=== PATIENT | male | born 1940 | race Caucasian/White ===

== ENCOUNTER 2017-10-11 00:55 | Inpatient (IN) | payer MEDICARE ==
[2017-10-11] VITALS (34 sets, daily range): BP systolic 88–133; BP diastolic 51–85; PULSE 74–112; RESP 16–24; TEMP 96.8–98.4; O2SAT 93–100
[~2017-10-11] VITALS: Ht 177.8 cm; Wt 74.0 kg
[~2017-10-11 00:55] MED LIST: Z.0.NO CURRENT MEDS
--- NOTE | 2017-10-11 01:10 | PD ---
HPI Chief Complaint: General Weakness Time Seen by Provider: 01:04 Travel History International Travel<30 days: No Contact w/Intl Traveler<30days: No Traveled to known affect area: No History of Present Illness HPI The patient is a 77 year old male who presents to the [facility] emergency department with a history of generalized weakness that he reports is been progressively worsening over the last week. He reports that he feels like he may be getting dehydrated. He reports that he has been eating normally. 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 It was resected and in a skin graft was placed. The area of skin graft was taken from the left forearm. The patient has an open wound with tendon exposure to that site which she reports in the next few weeks will also have a skin graft placed. The patient denies having any known fevers. He denies having any significant cough or congestion. He denies having any nausea, vomiting, or diarrhea. He denies having any chest pain, chest pressure, or shortness of breath. His called ambulance services this evening when he was reportedly altered. Upon their arrival he was cool, pale, and diaphoretic. The patient's blood pressure was 80 systolic. The patient's O2 saturations on room air were in the mid 80s. The patient was tachycardic in the 1 teens. IV access was obtained and the patient was given 500 mL of normal saline prior to arrival. The patient's blood pressure improved to 90 systolic. On review of systems otherwise, the patient denies having any neck pain, abdominal pain, urinary symptoms, or other focal neurologic symptoms. FOR[facility]LY [facility] Past Medical History Narrative Medical The patient's past medical history is significant for skin cancer. Initially, the patient reported that he does not have a history of diabetes. On further questioning after IV fluid resuscitation, the patient was more awake and alert and his is also at the bedside. They report that he has been diagnosed by his primary care physician in the past as being prediabetic. He reports that he was managing this with diet and exercise, however over the last year as he has been dealing with a skin cancer he has been followed by the [facility]. He reports that due to less exercise, he has developed diabetes. He reports that he was on insulin in the hospital 2 months ago when he had his surgery, however he was not discharged home on any medication. His was trying to get him into an drop wire hanger, however she was not able to schedule an appointment. Cancer: Yes (SKIN) Diabetes: No Patient Takes Glucophage: No Hepatitis: No Hiatal Hernia: No Medical other: Yes (LEFT MACULAR HOLE) Respiratory: Yes (sleep apnea) Thyroid Disease: No Tetanus Vaccination: Unknown Past Surgical History Narrative Surgical The patient's past surgical history is significant for eye surgery, skin cancer resection with skin graft Eye Surgery: Yes (cataract removed left eye) Oral Surgery: Yes (T & A) Pacemaker: No Other Surgery: Yes (SKIN GRAFT) Social History Alcohol Use: No Tobacco Use: No Substance Use: No Allergies-Medications (Allergen,Severity, Reaction): Coded Allergies: No Known Allergies (Unverified Allergy, Unknown, 10/11/17) Reported Meds & Prescriptions Reported Meds & Active Scripts Active Reported No Current Meds (Miscellaneous Medication) Misc Review of Systems Except as stated in HPI: all other systems reviewed are Neg General / Constitutional: No: Fever Eyes: No: Visual changes HENT: No: Headaches Cardiovascular: No: Chest Pain or Discomfort Respiratory: No: Shortness of Breath Gastrointestinal: No: Abdominal Pain Genitourinary: No: Dysuria Musculoskeletal: No: Pain Skin: No Rash Neurologic: Positive: Weakness (generalized weakness), No: Focal Abnormalities , Change in Mentation, Slurred Speech, Sensory Disturbance Psychiatric: No: Depression Endocrine: No: Polydipsia Hematologic/Lymphatic: No: Easy Bruising Physical Exam Narrative General: The patient is a well-developed well-nourished male in no acute distress Head and Neck exam: Head is noted to have a skin graft in place along 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 This appears to be in good repair, pink in color, no drainage noted. Eyes: EOMI, left pupil is smaller than the right. The patient has a history of left eye surgery. Extraocular motion is intact. Nose: Midline septum with pink mucous membranes Mouth: Dentition unremarkable. Moist mucus membranes. Posterior oropharynx is not erythematous. No tonsillar hypertrophy. Uvula midline. Airway patent. Neck: No palpable lymphadenopathy. No nuchal rigidity. No thyromegaly. Cardiovascular: Sinus tachycardia in the 1 teens without murmurs, gallops, or rubs. No pulse deficit to the extremities. Lungs: The patient has scattered rhonchi, crackles audible in the left lung base. No wheezes audible. No accessory muscle use. Abdomen: Soft, without tenderness to palpation in all 4 quadrants of the abdomen. No guarding, rebound, or rigidity. Normal bowel sounds are audible. No tenderness on palpation of McBurney's point. Negative Moralez's sign. Extremities: No clubbing, cyanosis, or edema. 2+ pulses in all 4 extremities. No calf tenderness on palpation. Back: No spinous process tenderness to palpation. No costovertebral angle tenderness to palpation. Neurologic Exam: Grossly nonfocal. Skin Exam: The patient on examination of the left forearm is noted to have a bandage in place. This was removed. The patient is noted along the ventral aspect of the forearm to have a wound with exposed tendon. There is minimal erythema to the skin around this. There is no significant drainage. Patient denies any significant tenderness on palpation. Intact skin that is warm and diaphoretic. Data Data Last Documented VS Vital Signs Date Time Temp Pulse Resp B/P (MAP) Pulse Ox O2 Delivery O2 Flow Rate FiO2 10/11/17 02:45 97.0 95 20 102/56 (71) 97 Nasal Cannula 3.00 Orders Orders Electrocardiogram (10/11/17 01:05) Complete Blood Count With Diff (10/11/17 01:05) Comprehensive Metabolic Panel (10/11/17 01:05) Creatine Kinase (Cpk) (10/11/17 01:05) Ckmb (Isoenzyme) Profile (10/11/17 01:05) Troponin I (10/11/17 01:05) B-Type Natriuretic Peptide (10/11/17 01:05) Prothrombin Time / Inr (Pt) (10/11/17 01:05) Act Partial Throm Time (Ptt) (10/11/17 01:05) C-Reactive Protein (Crp) (10/11/17 01:05) Lipase (10/11/17 01:05) Urinalysis - C+S If Indicated (10/11/17 01:05) Magnesium (Mg) (10/11/17 01:05) Chest, Single Ap (10/11/17 01:05) Iv Access Insert/Monitor (10/11/17 01:05) Ecg Monitoring (10/11/17 01:05) Oximetry (10/11/17 01:05) Urinary Catheter Insert/Apply (10/11/17 01:05) Blood Culture (10/11/17 01:05) Lactic Acid Sepsis Protocol (10/11/17 01:05) Sodium Chlor 0.9% 1000 Ml Inj (Ns 1000 M (10/11/17 01:15) Piperacil-Tazo 3.375 Gm Premix (Zosyn 3. (10/11/17 01:15) Vancomycin Inj (Vancomycin Inj) (10/11/17 01:15) CKMB (10/11/17 01:00) CKMB% (10/11/17 01:00) Sodium Chlor 0.9% 1000 Ml Inj (Ns 1000 M (10/11/17 02:00) Admit Order (Ed Use Only) (10/11/17 02:46) Labs Laboratory Tests Test 10/11/17 01:00 10/11/17 01:15 White Blood Count 10.8 TH/MM3 Red Blood Count 4.09 MIL/MM3 Hemoglobin 13.9 GM/DL Hematocrit 40.9 % Mean Corpuscular Volume 100.0 FL Mean Corpuscular Hemoglobin 33.9 PG Mean Corpuscular Hemoglobin Concent 33.8 % Red Cell Distribution Width 13.7 % Platelet Count 165 TH/MM3 Mean Platelet Volume 7.9 FL Neutrophils (%) (Auto) 54.7 % Lymphocytes (%) (Auto) 36.1 % Monocytes (%) (Auto) 7.5 % Eosinophils (%) (Auto) 1.2 % Basophils (%) (Auto) 0.5 % Neutrophils # (Auto) 5.9 TH/MM3 Lymphocytes # (Auto) 3.9 TH/MM3 Monocytes # (Auto) 0.8 TH/MM3 Eosinophils # (Auto) 0.1 TH/MM3 Basophils # (Auto) 0.1 TH/MM3 CBC Comment DIFF FINAL Differential Comment Prothrombin Time 12.0 SEC Prothromb Time International Ratio 1.1 RATIO Activated Partial Thromboplast Time 22.3 SEC Blood Urea Nitrogen 22 MG/DL Creatinine 1.25 MG/DL Random Glucose 256 MG/DL Total Protein 6.6 GM/DL Albumin 2.6 GM/DL Calcium Level 8.2 MG/DL Magnesium Level 2.2 MG/DL Alkaline Phosphatase 114 U/L Aspartate Amino Transf (AST/SGOT) 105 U/L Alanine Aminotransferase (ALT/SGPT) 70 U/L Total Bilirubin 0.4 MG/DL Sodium Level 138 MEQ/L Potassium Level 3.6 MEQ/L Chloride Level 103 MEQ/L Carbon Dioxide Level 21.8 MEQ/L Anion Gap 13 MEQ/L Estimat Glomerular Filtration Rate 56 ML/MIN Lactic Acid Level 5.9 mmol/L Total Creatine Kinase 156 U/L Creatine Kinase MB 5.3 NG/ML Troponin I 0.04 NG/ML C-Reactive Protein 4.63 MG/DL B-Type Natriuretic Peptide 67 PG/ML Lipase 180 U/L Urine Color YELLOW Urine Turbidity CLEAR Urine pH 6.5 Urine Specific [place] 1.020 Urine Protein 100 mg/dL Urine Glucose (UA) 70 mg/dL Urine Ketones NEG mg/dL Urine Occult Blood NEG Urine Nitrite NEG Urine Bilirubin NEG Urine Urobilinogen LESS THAN 2.0 MG/DL Urine Leukocyte Esterase NEG Urine RBC 5 /hpf Urine WBC 3 /hpf Urine Amorphous Sediment RARE Urine Bacteria RARE /hpf Urine Hyaline Casts 27 /lpf Urine Mucus FEW /lpf Microscopic Urinalysis Comment CULT NOT INDICATED MDM Medical Decision Making Medical Screen Exam Complete: Yes Emergency Medical Condition: Yes Medical Record Reviewed: Yes Differential Diagnosis Urinary tract infection, versus wound infection causing sepsis, versus pneumonia , versus bacteremia of unknown cause, versus intra-abdominal process Narrative Course During the course of the patients emergency department visit, the patients history, examination, and differential diagnosis were reviewed with the patient. The patient was placed on a shelter monitor with oximetry and frequent blood pressure monitoring. The patient had IV access obtained and blood work sent for analysis. The patient had an ECG done on arrival. The patient's ECG reveals a sinus tachycardia with a short CA interval, heart rate of 108, QRS duration 119 ms, QTC [address] depression, incomplete right bundle branch block. No acute ST segment elevation, T waves are inverted in V3 , V1. Blood cultures 2 were ordered, a lactic acid was ordered per sepsis wrote call. The patient was initially provided normal saline 1 L IV fluid bolus which was repeated 1, Zosyn and vancomycin were administered for broad-spectrum antibiotic coverage for suspected sepsis. The patients laboratory studies were reviewed and remarkable for a white count of 10.8, hemoglobin 13.9, platelets 165 with a normal differential, CMP is remarkable for BUN of 22, GFR 56, glucose 256, calcium 8.2, AST 105, CPK 156, troponin I 0.04, C-reactive protein 4.63, albumin 2.6, lipase 180, BNP is 67. Lactic acid is 5.9, PT 12, PTT 22.3, urinalysis shows 100 protein, 70 glucose, 5 rbc's, rare bacteria, culture not indicated. Radiology studies were reviewed and remarkable for a chest x-ray that shows a mild left base consolidation. The patients results were discussed with the patient, including the plan of care. I explained that further testing and/ or monitoring is indicated based on the patients history, examination, and/ or laboratory findings. Therefore, I recommended admission for additional evaluation. The patient expressed understanding and was agreeable with this plan. The patient was admitted to the hospital in guarded condition and sent to a bed under the care of the [facility]. Sepsis Criteria SIRS Criteria (2 or more): Temp > 100.9 or < 96.8, Heart rate over 90, RR > 20 or PaCO2 < 32 Sepsis Criteria (SIRS+source): Infect source susp/known Severe Sepsis (+one): Lactate >2 Septic Shock Criteria: Lactic acid >=4 Criteria Outcome: Meets SIRS criteria, Meets sepsis criteria, Meets severe sepsis criteria, Meets septic shock criteria Physician Communication Physician Communication The patient's case including history, pertinent physical examination findings, and laboratory studies were discussed with Dr. Peace. It was agreed that the patient would be admitted to the [facility]. Diagnosis Primary Impression: Pneumonia Qualified Codes: J18.1 - Lobar pneumonia, unspecified organism Additional Impression: Sepsis Qualified Codes: A41.9 - Sepsis, unspecified organism Samanta Albarado MD Oct 11, 2017 01:10
[2017-10-11] MEDS ORDERED: PIPERACIL-TAZO 3.375 GM PREMIX 50 ML IV ONE (01:15)
[2017-10-11] MEDS ORDERED: SODIUM CHLOR 0.9% 1000 ML INJ 1,000 ML IV ONE ×2 (01:15→02:00)
[2017-10-11] MEDS ORDERED: VANCOMYCIN INJ 1,000 MG in SODIUM CHLOR 0.9% 250 ML INJ 250 ML IV ONE (01:15)
[2017-10-11 01:28] LABS: AUTOMATED NEUTROPHIL # 5.9 TH/MM3 (1.8-7.7); BASOPHIL # 0.1 TH/MM3 (0-0.2); BASOPHIL % 0.5 % (0.0-2.0); EOSINOPHIL # 0.1 TH/MM3 (0-0.4); EOSINOPHIL % 1.2 % (0.0-4.0); HEMATOCRIT 40.9 % (39.0-51.0); HEMO FLAGS DIFF FINAL; LYMPH % 36.1 % (9.0-44.0); LYMPHOCYTE # 3.9 TH/MM3 (1.0-4.8); MEAN CORPUSCULAR HEMOGLOBIN 33.9 PG (27.0-34.0); MEAN CORPUSCULAR HGB CONC 33.8 % (32.0-36.0); MONO % 7.5 % (0.0-8.0); NEUT % 54.7 % (16.0-70.0); PLATELET COUNT 165 TH/MM3 (150-450); RED BLOOD COUNT 4.09 MIL/MM3 (4.50-5.90); RED CELL DISTRIBUTION WIDTH 13.7 % (11.6-17.2); WHITE BLOOD COUNT 10.8 TH/MM3 (4.0-11.0)
--- NOTE | 2017-10-11 01:28 | RADRPT ---
EXAM DATE/TIME: 10/11/2017 01:19 [facility] COMPARISON: No previous studies available for comparison. INDICATIONS : Cough, short of breath, syncope. MEDICAL HISTORY : None. SURGICAL HISTORY : None. ENCOUNTER: Initial ACUITY: 1 day PAIN SCORE: 0/10 LOCATION: Bilateral chest FINDINGS: Mild retrocardiac consolidation seen on the left. Right lung appears clear. No pleural effusion demon strated. No pneumothorax. Heart size within normal limits. There is atherosclerosis of the thoracic aorta. CONCLUSION: Mild left base consolidation. aGge Mera MD on October 11, 2017 at 1:26 Board Certified Radiologist. This report was verified electronically.
[2017-10-11 01:29] LABS: BACTERIA, URINE RARE /hpf; BLOOD, URINE NEG (NEG); COMMENT (UR) CULT NOT INDICATED; CULTURE IF INDICATED CULT NOT INDICATED; GLUCOSE,URINE 70 mg/dL (NEG); HYALINE CAST, URINE 27 /lpf (RARE); KETONE, URINE NEG (NEG); MUCUS URINE FEW /lpf (OCC); NITRITE,URINE NEG (NEG); PH, URINE 6.5 (5.0-8.5); URINE COLOR YELLOW (YELLW/STRAW)
[2017-10-11 01:43] LABS: ALT (GPT) 70 U/L (12-78); ANION GAP 13 MEQ/L (5-15); APTT (PATIENT) 22.3 SEC (24.3-30.1); AST (GOT) 105 U/L (15-37); BICARBONATE 21.8 MEQ/L (21.0-32.0); BLOOD UREA NITROGEN 22 MG/DL (7-18); CHLORIDE 103 MEQ/L (98-107); GLOMERULAR FILTRATION RATE 56 ML/MIN (>89); INTERNATIONAL NORMALIZED RATIO 1.1 RATIO; MAGNESIUM 2.2 MG/DL (1.5-2.5); POTASSIUM 3.6 MEQ/L (3.5-5.1); SODIUM (NA) 138 MEQ/L (136-145)
[2017-10-11 01:46] LABS: ALKALINE PHOSPHATASE 114 U/L (45-117); CREATINE KINASE 156 U/L (39-308); TOTAL BILIRUBIN ADULT 0.4 MG/DL (0.2-1.0)
[2017-10-11 01:59] LABS: CKMB 5.3 NG/ML (0.5-3.6)
[2017-10-11] MEDS ORDERED: cefTRIAXone INJ 1,000 MG in SODIUM CHLORIDE 0.9% INJ 100 ML IV SCH (03:00)
[2017-10-11] MEDS ORDERED: RESP: ALBUTEROL 2.5 MG/IPRATROPIUM 0.5 MG NEB (PRN) NEB (03:00)
[2017-10-11] MEDS ORDERED: GLUCAGON 1 MG/ML VIAL OTHER PRN (03:00)
[2017-10-11] MEDS ORDERED: SODIUM CHLOR 0.9% 1000 ML INJ 1,000 ML IV SCH (03:00)
[2017-10-11] MEDS ORDERED: DEXTROSE 50% IN WATER 50 ML VIAL(D50) IV PUSH PRN (03:00)
[2017-10-11 03:21] LABS: LACTIC ACID GHOST NOT REPORTABLE
[2017-10-11] MEDS ORDERED: AZITHROMYCIN INJ 500 MG in SODIUM CHLOR 0.9% 250 ML INJ 250 ML IV SCH (04:00)
[2017-10-11 05:25] LABS: AUTOMATED NEUTROPHIL # 9.4 TH/MM3 (1.8-7.7); BASOPHIL % 0.2 % (0.0-2.0); EOSINOPHIL % 0.2 % (0.0-4.0); HEMO FLAGS DIFF FINAL; LYMPH % 10.3 % (9.0-44.0); LYMPHOCYTE # 1.3 TH/MM3 (1.0-4.8); MEAN CORPUSCULAR HGB CONC 34.4 % (32.0-36.0); MONO % 11.4 % (0.0-8.0); NEUT % 77.9 % (16.0-70.0); PLATELET COUNT 126 TH/MM3 (150-450); RED BLOOD COUNT 3.74 MIL/MM3 (4.50-5.90); RED CELL DISTRIBUTION WIDTH 13.2 % (11.6-17.2); WHITE BLOOD COUNT 12.1 TH/MM3 (4.0-11.0)
[2017-10-11] MEDS ORDERED: IOHEXOL 350 MG/ML 10 ML VIAL (for RAD DIAG) IVCONTRAST ONE (05:31)
--- NOTE | 2017-10-11 05:45 | RADRPT ---
EXAM DATE/TIME: 10/11/2017 05:11 [facility] COMPARISON: CHEST SINGLE AP, October 11, 2017, 1:19. INDICATIONS : Cough, short of breath, general weakness. IV CONTRAST: 75 cc Omnipaque 350 (iohexol) IV RADIATION DOSE: 12.95 CTDIvol (mGy) MEDICAL HISTORY : None SURGICAL HISTORY : None. ENCOUNTER: Initial ACUITY: 1 day PAIN SCALE: 0/10 LOCATION: chest TECHNIQUE: Volumetric scanning of the chest was performed using a pulmonary embolism protocol MIP images were re constructed. Using automated exposure control and adjustment of the mA and/or kV according to patien t size, radiation dose was kept as low as reasonably achievable to obtain optimal diagnostic quality images. DICOM format image data is available electronically for review and comparison. Follow-up recommendations for detected pulmonary nodules are based at a minimum on nodule size and pa tient risk factors according to Fleischner Society Guidelines. FINDINGS: Bilateral pulmonary emboli present involving all segments of both lungs. Central pulmonary artery linnea iber mildly prominent and there is also questionable right ventricular strain. Mild subpleural consolidation seen of the left lung base, could represent a focal infarct. Otherwise, the lungs are clear. No lymphadenopathy. Small hiatal hernia noted. CONCLUSION: Extensive acute bilateral pulmonary emboli. Focal left base subpleural consolidation. Gage Mera MD on October 11, 2017 at 5:42 Board Certified Radiologist. This report was verified electronically.
[2017-10-11 08:40] LABS: ALKALINE PHOSPHATASE 107 U/L (45-117); ALT (GPT) 79 U/L (12-78); ANION GAP 8 MEQ/L (5-15); AST (GOT) 73 U/L (15-37); BICARBONATE 20.8 MEQ/L (21.0-32.0); BLOOD UREA NITROGEN 17 MG/DL (7-18); CHLORIDE 111 MEQ/L (98-107); GLOMERULAR FILTRATION RATE 94 ML/MIN (>89); POTASSIUM 4.4 MEQ/L (3.5-5.1); SODIUM (NA) 140 MEQ/L (136-145); TOTAL BILIRUBIN ADULT 0.3 MG/DL (0.2-1.0)
--- NOTE | 2017-10-11 09:24 | HHI.HP ---
HPI Service [facility] Hospitalists Primary Care Physician Carol Hansen MD Admission Diagnosis PE Chief Complaint: sob Travel History International Travel<30 Days: No Contact w/Intl Traveler <30 Da: No Traveled to Known Affected Are: No History of Present Illness Pt is 77 yo male with hx squamous cell ca right scalp being followed by [facility]. Pt had extensive resection and grafting of right scalp using tissue and vessels from left forearm according to his . They took a graft from the left thigh to close the left forearm but it has been slow to heel and there is exposed tendon. The pt and say he was scheduled to return to [facility] October 31 for another surgery on the left forearm to close the wound. The initial surgery was back on August 15 per . Fiver or six days ago he become much more sedentary after developing a rash on the scrotum. He is being treated with topical medications for what he described as "jock rash by his pcp". It has improved per pt. Yesterday he was waking out of the bathroom when he suddenly became dizzy and sob. says he fell to his knees complaining of sob and was not responding to her. Pt denies LOC. When she called paramedics he had returned to his mental baseline. In ED he was hypotensive and hypoxic. concern for pna and sepsis so pt received iv abx and ivf. CTA this AM shows extensive bilateral pulmonary emboli. Review of Systems Other sob/dizzy scrotal rash sedentary over past week. Past Family Social History Past Medical History SCC right scalp. s/p graft from left forearm. also left thigh graft to left forearm. told he has predm. Reported Medications topical silvadene to wound bid Allergies: Coded Allergies: No Known Allergies (Unverified Allergy, Unknown, 10/11/17) Family History nc Social History no etoh/tob Physical Exam Vital Signs nad heart reg lung no crackles/wheezing abd s/nt ext left forearm bandaged right scalp graft noted. pete Vital Signs Date Time Temp Pulse Resp B/P (MAP) Pulse Ox O2 Delivery O2 Flow Rate FiO2 10/11/17 05:57 97.2 96 18 119/69 (86) 96 10/11/17 05:30 10/11/17 03:44 96 Nasal Cannula 3.00 10/11/17 02:45 97.0 95 20 102/56 (71) 97 Nasal Cannula 3.00 10/11/17 02:15 97.0 98 22 94/54 (67) 95 Nasal Cannula 3.00 10/11/17 02:00 97.0 100 22 90/53 (65) 96 Nasal Cannula 3.00 10/11/17 01:45 96.8 106 22 88/51 (63) 94 Nasal Cannula 3.00 10/11/17 01:31 22 93 Nasal Cannula 3.00 10/11/17 01:30 96.8 106 22 96/58 (71) 93 Nasal Cannula 3.00 10/11/17 01:13 107 22 110/61 (77) 93 Nasal Cannula 3.00 10/11/17 01:06 94 Nasal Cannula 3.00 10/11/17 01:05 107 22 94/64 (74) 96 Nasal Cannula 3.00 10/11/17 00:56 97.4 112 24 103/59 (74) Laboratory Laboratory Tests Test 10/11/17 01:00 10/11/17 01:15 10/11/17 03:25 10/11/17 05:04 White Blood Count 10.8 12.1 Red Blood Count 4.09 3.74 Hemoglobin 13.9 12.7 Hematocrit 40.9 37.0 Mean Corpuscular Volume 100.0 99.0 Mean Corpuscular Hemoglobin 33.9 34.0 Mean Corpuscular Hemoglobin Concent 33.8 34.4 Red Cell Distribution Width 13.7 13.2 Platelet Count 165 126 Mean Platelet Volume 7.9 7.5 Neutrophils (%) (Auto) 54.7 77.9 Lymphocytes (%) (Auto) 36.1 10.3 Monocytes (%) (Auto) 7.5 11.4 Eosinophils (%) (Auto) 1.2 0.2 Basophils (%) (Auto) 0.5 0.2 Neutrophils # (Auto) 5.9 9.4 Lymphocytes # (Auto) 3.9 1.3 Monocytes # (Auto) 0.8 1.4 Eosinophils # (Auto) 0.1 0.0 Basophils # (Auto) 0.1 0.0 CBC Comment DIFF FINAL DIFF FINAL Differential Comment Prothrombin Time 12.0 Prothromb Time International Ratio 1.1 Activated Partial Thromboplast Time 22.3 Blood Urea Nitrogen 22 Creatinine 1.25 Random Glucose 256 Total Protein 6.6 Albumin 2.6 Calcium Level 8.2 Magnesium Level 2.2 Alkaline Phosphatase 114 Aspartate Amino Transf (AST/SGOT) 105 Alanine Aminotransferase (ALT/SGPT) 70 Total Bilirubin 0.4 Sodium Level 138 Potassium Level 3.6 Chloride Level 103 Carbon Dioxide Level 21.8 Anion Gap 13 Estimat Glomerular Filtration Rate 56 Lactic Acid Level 5.9 2.2 Total Creatine Kinase 156 Creatine Kinase MB 5.3 Troponin I 0.04 C-Reactive Protein 4.63 B-Type Natriuretic Peptide 67 Lipase 180 Urine Color YELLOW Urine Turbidity CLEAR Urine pH 6.5 Urine Specific [place] 1.020 Urine Protein 100 Urine Glucose (UA) 70 Urine Ketones NEG Urine Occult Blood NEG Urine Nitrite NEG Urine Bilirubin NEG Urine Urobilinogen LESS THAN 2.0 Urine Leukocyte Esterase NEG Urine RBC 5 Urine WBC 3 Urine Amorphous Sediment RARE Urine Bacteria RARE Urine Hyaline Casts 27 Urine Mucus FEW Microscopic Urinalysis Comment CULT NOT INDICATED Test 10/11/17 07:57 Blood Urea Nitrogen 17 Creatinine 0.80 Random Glucose 130 Total Protein 5.9 Albumin 2.3 Calcium Level 7.5 Alkaline Phosphatase 107 Aspartate Amino Transf (AST/SGOT) 73 Alanine Aminotransferase (ALT/SGPT) 79 Total Bilirubin 0.3 Sodium Level 140 Potassium Level 4.4 Chloride Level 111 Carbon Dioxide Level 20.8 Anion Gap 8 Estimat Glomerular Filtration Rate 94 Troponin I 1.65 Date/Time Source Procedure Growth Status 10/11/17 01:00 Blood Peripheral Aerobic Blood Culture Pending Received 10/11/17 01:00 Blood Peripheral Anaerobic Blood Culture Pending Received Result Diagram: 10/11/17 0504 10/11/17 0757 Caprini VTE Risk Assessment Caprini VTE Risk Assessment: Mod/High Risk (score >= 2) Caprini Risk Assessment Model Point Value = 1 Point Value = 2 Point Value = 3 Point Value = 5 Age 41-60 Minor surgery BMI > 25 kg/m2 Swollen legs Varicose veins or History of unexplained or recurrent spontaneous Oral contraceptives or hormone replacement Sepsis (< 1 month) Serious lung disease, including pneumonia (< 1 month) Abnormal pulmonary function Acute myocardial infarction Congestive heart failure (< 1 month) History of inflammatory bowel disease Medical patient at bed rest Age 61-74 Arthroscopic surgery Major open surgery (> 45 min) Laparoscopic surgery (> 45 min) Malignancy Confined to bed (> 72 hours) Immobilizing plaster cast Central venous access Age >= 75 History of VTE Family history of VTE Factor V Leiden Prothrombin [id number] Lupus anticoagulant Anticardiolipin antibodies Elevated serum homocysteine Heparin-induced thrombocytopenia Other congenital or acquired thrombophilia Stroke (< 1 month) Elective arthroplasty Hip, pelvis, or leg fracture Acute spinal cord injury (< 1 month) Prophylaxis Regimen Total Risk Factor Score Risk Level Prophylaxis Regimen 0-1 Low Early ambulation 2 Moderate Order ONE of the following: *Sequential Compression Device (SCD) *Heparin 5000 units SQ BID 3-4 Higher Order ONE of the following medications: *Heparin 5000 units SQ TID *Enoxaparin/Lovenox 40 mg SQ daily (WT < 150 kg, CrCl > 30 mL/min) *Enoxaparin/Lovenox 30 mg SQ daily (WT < 150 kg, CrCl > 10-29 mL/min) *Enoxaparin/Lovenox 30 mg SQ BID (WT < 150 kg, CrCl > 30 mL/min) AND/OR *Sequential Compression Device (SCD) 5 or more Highest Order ONE of the following medications: *Heparin 5000 units SQ TID (Preferred with Epidurals) *Enoxaparin/Lovenox 40 mg SQ daily (WT < 150 kg, CrCl > 30 mL/min) *Enoxaparin/Lovenox 30 mg SQ daily (WT < 150 kg, CrCl > 10-29 mL/min) *Enoxaparin/Lovenox 30 mg SQ BID (WT < 150 kg, CrCl > 30 mL/min) AND *Sequential Compression Device (SCD) Assessment and Plan Problem List: (1) Pulmonary embolism ICD Codes: I26.99 - Other pulmonary embolism without acute cor pulmonale Status: Acute Plan: Pt is 77 yo male with hx squamous cell ca right scalp being followed by [facility]. Pt had extensive resection and grafting of right scalp using tissue and vessels from left forearm according to his . They took a graft from the left thigh to close the left forearm but it has been slow to heel and there is exposed tendon. The pt and say he was scheduled to return to [facility] October 31 for another surgery on the left forearm to close the wound. The initial surgery was back on August 15 per . Fiver or six days ago he become much more sedentary after developing a rash on the scrotum. He is being treated with topical medications for what he described as "jock rash by his pcp". It has improved per pt. Yesterday he was waking out of the bathroom when he suddenly became dizzy and sob. says he fell to his knees complaining of sob and was not responding to her. Pt denies LOC. When she called paramedics he had returned to his mental baseline. In ED he was hypotensive and hypoxic. concern for pna and sepsis so pt received iv abx and ivf. CTA this AM shows extensive bilateral pulmonary emboli. -reviewed cta imaging with pt/. long discussion about which anticoagulant to use. we will start today with lovenox. if he does ok would prefer to d/c him on eliquis in a day or 2. monitor cbc. monitor oxygen with rest/ambulation.. monitor his surgical sites for any bleeding. -monitor tele. ekg showed right heart stain pattern. elevated trop felt related to PE's -f/u pending blood cx's. will hold abx for now. -u/s legs. -I suspect his elective left forearm surgery will need to be delayed until the PE's are more thoroughly treated. -cont left forearm wound care as was prescribed by his doctor at [facility] ADDENDUM: LEG U/S SHOWS EXTENSIVE ILEOFEMORAL DVT ON LEFT WITH NEARLY OCCLUSIVE THROMBUS DOWN TO CALF VEINS. I WILL ASK HEMATOLOGY FOR OPINION IN MORNING GIVEN HIS ALREADY LARGE PULMONARY EMBOLI BURDEN. PLUS HIS EKG CHANGES. IN ADDITION HE WILL NEED FURTHER SURGERY ON HIS LEFT ARM IN FUTURE AT [facility]. RADIOLOGY HAD MENTIONED IVC FILTER. WILL DISCUSS ALL OPTIONS WITH HEMATOLOGY AND DECIDE. (2) Squamous cell carcinoma of scalp ICD Codes: C44.42 - Squamous cell carcinoma of skin of scalp and neck Status: Chronic Physician Certification 2 Midnight Certification Type: Admission for Inpatient Services Order for Inpatient Services 3The services are ordered in accordance with Medicare regulations or non- Medicare payer requirements, as applicable. In the case of services not specified as inpatient-only, they are appropriately provided as inpatient services in accordance with the 2-midnight benchmark. Estimated LOS (days): 3 3 days is the estimated time the patient will need to remain in the hospital, assuming treatment plan goals are met and no additional complications. Post-Hospital Plan: Home Thomas Obrien MD Oct 11, 2017 09:24
[2017-10-11] MEDS: ENOXAPARIN SODIUM 80 MG/0.8 ML SYRINGE SQ SCH ×2 (10:01→22:45)
--- NOTE | 2017-10-11 10:25 | RADRPT ---
EXAM DATE/TIME: 10/11/2017 09:34 [facility] COMPARISON: No previous studies available for comparison. INDICATIONS : Pulmonry embolism. MEDICAL HISTORY : Squamous cell carcinoma, right scalp. Radiation therapy. Left macular hole. Diabetes. SURGICAL HISTORY : Resection with skin graft, right scalp. ENCOUNTER: Initial ACUITY: 1 day PAIN SCORE: 0/10 LOCATION: Bilateral legs. TECHNIQUE: Venous ultrasound of the left and right leg was performed from the inguinal ligament to the proximal calf. Real-time, color Doppler and spectral tracing, compression and augmentation techniques were us ed. FINDINGS: RIGHT LEG: There is normal compressibility of the deep venous system from the inguinal region to the proximal ca lf. No echogenic clot is seen in the lumen of the common femoral, femoral, popliteal, and posterior tibial veins. There is a normal response of the venous system to proximal and distal augmentation an d respiration. LEFT LEG: Abnormal. Extensive nearly occlusive thrombus extending from the external iliac vein to the tibial ve ins. Thrombus also involves the greater saphenous vein. CONCLUSION: 1. Extensive left iliofemoral DVT with nearly occlusive thrombus extending from the left external vishnu ac vein into the calf veins. Consider temporary IVC filter placement if patient's pulmonary thrombus burden is hemodynamically significant. Caden Shane MD on October 11, 2017 at 10:17 Board Certified Radiologist. This report was verified electronically.
[2017-10-11] MEDS: NYSTATIN 100,000 U/GM PWD 15 GM BTL TOPICAL SCH ×2 (12:31→22:46)
[2017-10-11] MEDS: INSULIN ASPART SUPPLEMENTAL SCALE SQ SCH ×3 (12:31→21:00)
[2017-10-11] MEDS: SILVER SULFADIAZINE 1% CR 50 GM JAR TOPICAL SCH ×2 (12:31→22:46)
[2017-10-11 13:41] LABS: HEMOGLOBIN A1a 1.1 %; HEMOGLOBIN A1b 0.8 %; HEMOGLOBIN Ao 83.5 %; HEMOGLOBIN F 1.5 %; HEMOGLOBIN LA1C 2.4 %; HEMOGLOBIN P3 4.1 %
[2017-10-12] VITALS (27 sets, daily range): BP systolic 106–145; BP diastolic 58–80; PULSE 62–102; RESP 17–22; TEMP 97.9–98.7; O2SAT 94–97
[2017-10-12 04:55] LABS: AUTOMATED NEUTROPHIL # 4.3 TH/MM3 (1.8-7.7); BASOPHIL % 0.6 % (0.0-2.0); EOSINOPHIL # 0.1 TH/MM3 (0-0.4); EOSINOPHIL % 1.3 % (0.0-4.0); HEMATOCRIT 34.7 % (39.0-51.0); HEMO FLAGS DIFF FINAL; LYMPH % 30.3 % (9.0-44.0); LYMPHOCYTE # 2.3 TH/MM3 (1.0-4.8); MEAN CELL VOLUME 98.1 FL (80.0-100.0); MEAN CORPUSCULAR HEMOGLOBIN 33.8 PG (27.0-34.0); MEAN CORPUSCULAR HGB CONC 34.4 % (32.0-36.0); MONO % 9.5 % (0.0-8.0); NEUT % 58.3 % (16.0-70.0); PLATELET COUNT 129 TH/MM3 (150-450); RED BLOOD COUNT 3.53 MIL/MM3 (4.50-5.90); RED CELL DISTRIBUTION WIDTH 13.3 % (11.6-17.2); WHITE BLOOD COUNT 7.4 TH/MM3 (4.0-11.0)
[2017-10-12 05:09] LABS: POTASSIUM 4.1 MEQ/L (3.5-5.1)
[2017-10-12] MEDS: NYSTATIN 100,000 U/GM PWD 15 GM BTL TOPICAL SCH ×3 (06:00→22:00)
[2017-10-12] MEDS: INSULIN ASPART SUPPLEMENTAL SCALE SQ SCH ×3 (08:00→21:00)
--- NOTE | 2017-10-12 08:47 | HHI.PR ---
Subjective Remarks no leg pain sob resolved. Objective Vitals heart reg lung cta abd s/nt ext no pitting/redness right scalp graft noted left forearm bandaged left thigh graft site wout infection signs. Vital Signs Date Time Temp Pulse Resp B/P (MAP) Pulse Ox O2 Delivery O2 Flow Rate FiO2 10/12/17 08:38 96 21 10/12/17 08:00 62 10/12/17 07:15 98.7 67 17 106/58 (74) 95 10/12/17 07:15 66 10/12/17 06:00 74 10/12/17 05:00 66 10/12/17 04:00 62 10/12/17 03:35 98.1 70 18 116/59 (78) 96 10/12/17 03:00 82 10/12/17 02:00 66 10/12/17 01:00 68 10/12/17 00:00 71 10/11/17 23:38 98.1 77 18 126/85 (99) 97 10/11/17 23:00 82 10/11/17 22:00 74 10/11/17 21:00 74 10/11/17 20:30 97.9 80 18 133/77 (95) 97 10/11/17 20:00 76 10/11/17 19:00 83 10/11/17 18:00 84 10/11/17 17:00 80 10/11/17 16:24 98 21 10/11/17 16:00 86 10/11/17 15:45 98.4 84 18 122/72 (89) 100 10/11/17 15:45 84 10/11/17 15:00 80 10/11/17 14:00 82 10/11/17 13:00 82 10/11/17 12:00 88 10/11/17 11:34 98 Nasal Cannula 2.00 10/11/17 11:30 98.0 98 16 114/63 (80) 96 10/11/17 11:30 98 10/11/17 11:00 92 10/11/17 10:00 88 10/11/17 09:00 94 Result Diagram: 10/12/178 10/12/17417 A/P Problem List: (1) Pulmonary embolism ICD Codes: I26.99 - Other pulmonary embolism without acute cor pulmonale Status: Acute Plan: Pt is 77 yo male with hx squamous cell ca right scalp being followed by [facility]. Pt had extensive resection and grafting of right scalp using tissue and vessels from left forearm according to his . They took a graft from the left thigh to close the left forearm but it has been slow to heel and there is exposed tendon. The pt and say he was scheduled to return to [facility] October 31 for another surgery on the left forearm to close the wound. The initial surgery was back on August 15 per . Five or six days ago he become much more sedentary after developing a rash on the scrotum. He is being treated with topical medications for what he described as "jock rash by his pcp". It has improved per pt. Yesterday he was waking out of the bathroom when he suddenly became dizzy and sob. says he fell to his knees complaining of sob and was not responding to her. Pt denies LOC. When she called paramedics he had returned to his mental baseline. In ED he was hypotensive and hypoxic. concern for pna and sepsis so pt received iv abx and ivf. CTA showed extensive bilateral pulmonary emboli. lower ext doppler u/s shows extensive dvt from ileofemoral down to calf veins nearly occlusive but asx. his ekg showed right heart strain pattern on admission. elevated troponin felt related to PE. platelets low but stable. -reviewed cta imaging with pt/. long discussion about which anticoagulant to use. -we started him on lovenox 10/11. I would prefer to send him on eliquis at d/c but I have discussed pros/cons of lovenox/coumadin. - I discussed the pros and cons of an IVC filter. my preference would be to avoid a filter. -After my discussion with the patient we agreed to get another opinion from a engineer chief given the large clot burden, ekg change, need for further elective surgery at [facility] at some point on his left forearm. We will need to decide how long to have him treated before undergoing surgical procedure. My assumption would be to wait for at least 3 months if not more. -cont left forearm wound care as was prescribed by his doctor at [facility] -His w/up here shows that he has dm2...will discuss starting him on metformin at d/c (2) Squamous cell carcinoma of scalp ICD Codes: C44.42 - Squamous cell carcinoma of skin of scalp and neck Status: Chronic Micah,Thomas L MD Oct 12, 2017 08:47
[2017-10-12] MEDS: ENOXAPARIN SODIUM 80 MG/0.8 ML SYRINGE SQ SCH ×2 (09:40→22:17)
[2017-10-12] MEDS: SILVER SULFADIAZINE 1% CR 50 GM JAR TOPICAL SCH ×2 (09:41→22:18)
[2017-10-12 12:42] LABS: BLOOD GAS BASE EXCESS -8.8 mmol/L (-2-2); BLOOD GAS CARBOXYHEMOGLOBIN 0.7 % (0-4); BLOOD GAS HCO3 16 mmol/L (22-26); BLOOD GAS METHEMOGLOBIN 0.9 % (0-2); BLOOD GAS O2 HGB SATURATION 95 % (90-100); BLOOD GAS OXYGEN CONTENT 17.8 Vol % (12.0-20.0); BLOOD GAS PCO2 29 mmHg (38-42); BLOOD GAS PO2 94 mmHg (61-120); BLOOD GAS TOTAL HGB 13.3 G/DL (12.0-16.0); TEMP CORR TO 98.6
[2017-10-12 12:44] LABS: CRITICAL VALUE YES; DRAW SITE RT RADIAL; LITER FLOW 4 L/M; NUMBER OF ARTERIAL PUNCTURES 1; OXYGEN DEVICE NASAL CANNULA; STAT YES
[2017-10-12] MEDS ORDERED: EPINEPHrine HCL (1:1000) 1 MG/ML VIAL ONE (12:49)
[2017-10-12] MEDS ORDERED: ATROPINE SULFATE 1 MG/10 ML SYRINGE ONE (12:50)
--- NOTE | 2017-10-12 13:57 | RADRPT ---
EXAM DATE/TIME: 10/12/2017 13:32 [facility] COMPARISON: No previous studies available for comparison. INDICATIONS : Syncopal episode RADIATION DOSE: 47.03 CTDIvol (mGy) MEDICAL HISTORY : Diabetes mellitus type 1. SURGICAL HISTORY : None. ENCOUNTER: Initial ACUITY: 1 day PAIN SCALE: 0/10 LOCATION: cranial TECHNIQUE: Multiple contiguous axial images were obtained of the head. Using automated exposure control and adj ustment of the mA and/or kV according to patient size, radiation dose was kept as low as reasonably a chievable to obtain optimal diagnostic quality images. DICOM format image data is available electro nically for review and comparison. FINDINGS: CEREBRUM: The ventricles are normal for age. No evidence of midline shift, mass lesion, hemorrhage or acute in farction. No extra-axial fluid collections are seen. POSTERIOR FOSSA: The cerebellum and brainstem are intact. The 4th ventricle is midline. The cerebellopontine angle i s unremarkable. EXTRACRANIAL: The visualized portion of the orbits is intact. SKULL: The calvaria is intact. No evidence of skull fracture. Surgical reconstruction right supraorbital r egion. CONCLUSION: No acute findings in the brain. Vicente Rosales MD on October 12, 2017 at 13:53 Board Certified Radiologist. This report was verified electronically.
--- NOTE | 2017-10-12 14:20 | MB ---
cc: CAROL WILLIAMSON DATE OF CONSULTATION: 10/12/2017 REASON FOR CONSULTATION: Pulmonary emboli. PATIENT PROFILE The patient is 77-year white male. He is . He was born in [place]. He lives in [facility]. He has no children. He is retired. He did maintenance work. He stopped smoking 35 years ago and had smoked less than a pack of cigarettes per day for 8 years. He does not consume alcohol. HISTORY OF PRESENT ILLNESS The patient is a 77-year-old male who has generally enjoyed reasonably good health. He has a history of sleep apnea but presently does not use his C-PAP. He had a squamous cell cancer removed above the right orbit in September 2016. He did not have complete healing of this area and required a graft which was placed in March 2017. The graft was unsuccessful and he required a third surgery on 08/15/2017, where he had tissue removed from the left forearm used as a graft for the area above the right orbit. At the same time he had a graft removed from the left leg applied to the left forearm. He has had problems with healing involving the left forearm and the [facility] is planning on additional surgery to the the near future. He received postoperative radiation in 2015 when the squamous cell cancer was removed from the right supraorbital at presentation. His immediate problem dates back about three or four days ago, when he noted transient discomfort in the left thigh without any swelling. This resolved quickly. Approximately 36 hours ago he went to the bathroom and passed out. His found him cold and clammy on the floor. He was momentarily unconscious and he and his called 911 and he was transported to the hospital. He has undergone the following tests. On 10/11/2017 he had an ultrasound of the left lower extremity and was found to have extensive left iliofemoral DVT with nearly occlusive thrombus extending from the left external iliac vein to left calf veins. A chest x-ray from 10/11 shows mild left base consolidation. A CT angiogram 10/11/2017 shows extensive acute bilateral pulmonary emboli and focal left subpleural consolidation. Laboratory tests on 10/11 hemoglobin 13.9, white count 10,800, platelets 165,000. PT and PTT on 10/11, and respectively. Lytes, BUN and creatinine unremarkable. Troponins level is 1.65. At the time of admission he was hypotensive with a blood pressure is low as 85/51. He is now runs a normal blood pressure. His O2 sats presently on room air are 94%. There was no obvious precipitating event. He tends to sleep more on the left side than the right side as he does not like the right side of his face leaning against the pillow. He has been more sedentary than usual but there was no with single event which would have precipitated the current thromboembolic problem. PAST SURGICAL HISTORY 1. Tonsillectomy 2. September 2016 excision of squamous cell carcinoma of the right orbit followed by postoperative radiation. 3. March 2017 grafts to the surgical sites. 4. 08/15/2017 further surgery to site above right orbit which consisted of grafting tissue and endovascular structures of the left forearm to above the right orbit and at the same taking tissue from the left leg and bringing it to the left forearm area. PAST MEDICAL HISTORY 1. Sleep apnea. The patient currently does not use his CPAP. 2. Diabetes which has been intermittent during times of stress. He does not take any medications. MEDICATIONS PRIOR TO ADMISSION None. currently on Lovenex 1 mg/kg sub cut q 12 hourss ALLERGIES NO KNOWN DRUG ALLERGIES. FAMILY HISTORY Noncontributory. REVIEW OF SYSTEMS No change in vision or hearing. No chest pain, palpitations, no fever, night sweats, chills, cough. He had shortness of breath and syncope precipitating his admission. No bleeding in stool or Urine. Musculoskeletal: No bone pain. Neurologic: No focal weakness. PHYSICAL EXAMINATION VITAL SIGNS: He appears well. Blood pressure 120/60, respiratory rate is 18, pulse 80, afebrile. O2 sat 94%. HEAD, EYES, EARS, NOSE, AND THROAT: Head is normocephalic. He has a healing scar over the right orbit where he had surgery. Oropharynx unremarkable. LYMPHATICS: No cervical, supraclavicular, axillary or inguinal adenopathy. HEART: Regular rhythm. LUNGS: Clear. ABDOMEN: Soft. No hepatosplenomegaly. EXTREMITIES: No edema of either extremity. No calf tenderness. MUSCULOSKELETAL: No bone pain. NEUROLOGIC: No weakness. He has a bandage over the left forearm area and evidence of previous surgery to the left leg. ASSESSMENT The patient is a 77-year-old male who presents with extensive left iliofemoral deep venous thrombosis and extensive bilateral pulmonary emboli. At the time of presentation, he had a near event, where his found him on the floor momentarily unconscious. At the present time he does not have evidence of hemodynamic compromise. He is not hypoxic, hypotensive or in congestive heart failure. His DVT and pulmonary emboli appear to be unprovoked. He has not had any extensive recent surgery which would be likely to cause venous thrombosis. There is no obvious precipitating event and therefore I would consider this a life-threatening pulmonary emboli which was unprovoked. RECOMMENDATIONS 1. I believe that he is an excellent candidate for a 10A inhibitor. One could use Xarelto or apixaban. For the present time I would leave him on Lovenox for several days and then switch him to one of the 10A inhibitors. If apixaban is used the dose would be 10 mg p.o. b.i.d. for 7 days followed by 5 mg p.o. b.i.d. I would recommend indefinite anticoagulation given the severity of the pulmonary embolus and the fact that there is no obvious precipitating event. At the present time I would not recommend thrombolytic therapy as he appears hemodynamically stable. I would not recommend placing an inferior vena cava umbrella as he has not failed anticoagulation and the umbrella would only predispose him to further thrombus in the leg and he would still require anticoagulation. I would recommend delaying any elective surgery for several months to prevent any interruption in anticoagulation given the severity of the PE and extent of DVT. The above was discussed with Dr. Obrien who will probably stop the Lovenox in several days and then introduce Eliquis 10 Mg b.i.d. After a few days on Eliquis he can be discharged. He had an episode of bradycardia this AM with near syncope. Under these circumstances I believe it is appropriate to keep him in the hospital for a period of observation to make sure that he is stable. If he has further cardiac events I would recommend a cardiology consult and echocardiogram. MD JOYA Sousa/mihai /1:47 PM /2:07 PM DAVID
--- NOTE | 2017-10-12 18:08 | ECHRPT ---
Indication: Other pulmonary embolism without acute cor pulmonale CONCLUSIONS The left ventricular systolic function is mildly reduced with an estimated ejection fraction in the range of 50%. Wall thickness is measured at the upper limits of normal. Normal left ventricular size. There is mild tricuspid valve regurgitation. The estimated pulmonary arterial pressure is 32.7 mmHg. BP: 122 / 63 HR: 79 Rhythm: Sinus MEASUREMENTS (Male / Female) Normal Values Technical Quality:Good 2D ECHO LV Diastolic Diameter PLAX 4.9 cm 4.2 - 5.9 / 3.9 - 5.3 cm LV Systolic Diameter PLAX 3.9 cm IVS Diastolic Thickness 1.1 cm 0.6 - 1.0 / 0.6 - 0.9 cm LVPW Diastolic Thickness 1.1 cm 0.6 - 1.0 / 0.6 - 0.9 cm LV Relative Wall Thickness 0.4 LVOT Diameter 2.1 cm M-MODE Aortic Root Diameter MM 3.3 cm LA Systolic Diameter MM 3.8 cm LA Ao Ratio MM 1.2 AV Cusp Separation MM 2.2 cm DOPPLER AV Peak Velocity 96.2 cm/s AV Peak Gradient 3.7 mmHg LVOT Peak Velocity 78.5 cm/s LVOT Peak Gradient 2.5 mmHg AV Area Cont Eq pk 2.8 cm Mitral E Point Velocity 50.3 cm/s Mitral A Point Velocity 85.4 cm/s Mitral E to A Ratio 0.6 LV E' Lateral Velocity 6.1 cm/s Mitral E to LV E' Lateral Ratio 8.2 LV E' Septal Velocity 3.8 cm/s Mitral E to LV E' Septal Ratio 13.2 TR Peak Velocity 238.0 cm/s TR Peak Gradient 22.7 mmHg Right Atrial Pressure 10.0 mmHg Pulmonary Artery Systolic Pressu 32.7 mmHg Right Ventricular Systolic Press 32.7 mmHg PV Peak Velocity 80.1 cm/s PV Peak Gradient 2.6 mmHg FINDINGS LEFT VENTRICLE The left ventricular systolic function is mildly reduced with an estimated ejection fraction in the range of 45- 50%. Wall thickness is measured at the upper limits of normal. Normal left ventricular size. RIGHT VENTRICLE Normal right ventricular size and systolic function. LEFT ATRIUM The left atrial size is normal. RIGHT ATRIUM The right atrial size is normal. ATRIAL SEPTUM Normal atrial septal thickness without atrial level shunting by limited color doppler interrogation. AORTA The aortic root and proximal ascending aorta are normal in size on limited imaging. MITRAL VALVE Structurally normal mitral valve. No mitral valve stenosis or regurgitation. AORTIC VALVE Trileaflet aortic valve. No aortic valve stenosis or regurgitation. TRICUSPID VALVE There is mild tricuspid valve regurgitation. The estimated pulmonary arterial pressure is 32.7 mmHg. PULMONARY VALVE No pulmonary valve regurgitation or stenosis. VESSELS The inferior vena cava is normal in size. PERICARDIUM No pericardial effusion. Evelio Gtz MD (Electronically Signed) Final Date:12 October 2017 18:07
[2017-10-13] VITALS (26 sets, daily range): BP systolic 126–148; BP diastolic 60–79; PULSE 60–88; RESP 18; TEMP 97.7–98.2; O2SAT 92–98
[2017-10-13] MEDS: NYSTATIN 100,000 U/GM PWD 15 GM BTL TOPICAL SCH ×3 (06:00→22:00)
--- NOTE | 2017-10-13 07:46 | HHI.PR ---
Subjective Remarks doing ok overnight. Objective Vitals heart reg lung cta abd s/nt ext left forearm bandaged right scalp graft noted. Vital Signs Date Time Temp Pulse Resp B/P (MAP) Pulse Ox O2 Delivery O2 Flow Rate FiO2 10/13/17 06:02 98.2 73 18 138/73 (94) 92 10/13/17 06:00 67 10/13/17 05:00 81 10/13/17 04:00 64 10/13/17 03:00 63 10/13/17 02:00 64 10/13/17 01:00 78 10/13/17 00:00 72 10/12/17 23:34 98.0 79 18 145/72 (96) 97 10/12/17 23:00 70 10/12/17 22:00 80 10/12/17 21:00 80 10/12/17 20:00 74 10/12/17 20:00 96 Room Air 10/12/17 20:00 98.0 71 18 130/80 (97) 96 10/12/17 19:00 80 10/12/17 18:01 87 10/12/17 17:00 82 10/12/17 16:00 74 10/12/17 15:00 74 10/12/17 15:00 94 Nasal Cannula 2.00 10/12/17 15:00 97.9 79 22 127/78 (94) 94 10/12/17 14:00 79 10/12/17 13:00 79 10/12/17 12:00 102 10/12/17 11:00 83 17 122/63 (82) 94 10/12/17 11:00 78 10/12/17 10:00 76 10/12/17 09:00 79 10/12/17 08:38 96 21 10/12/17 08:00 62 Result Diagram: 10/12/17 0418 10/12/17 0418 A/P Problem List: (1) Pulmonary embolism ICD Codes: I26.99 - Other pulmonary embolism without acute cor pulmonale Status: Acute Plan: Pt is 77 yo male with hx squamous cell ca right scalp being followed by [facility] Pt had extensive resection and grafting of right scalp using tissue and vessels from left forearm according to his . They took a graft from the left thigh to close the left forearm but it has been slow to heel and there is exposed tendon. The pt and say he was scheduled to return to [place] October 31 for another surgery on the left forearm to close the wound. The initial surgery was back on August 15 per . Five or six days ago he become much more sedentary after developing a rash on the scrotum. He is being treated with topical medications for what he described as "jock rash by his pcp". It has improved per pt. Yesterday he was waking out of the bathroom when he suddenly became dizzy and sob. says he fell to his knees complaining of sob and was not responding to her. Pt denies LOC. When she called paramedics he had returned to his mental baseline. In ED he was hypotensive and hypoxic. concern for pna and sepsis so pt received iv abx and ivf. CTA showed extensive bilateral pulmonary emboli. lower ext doppler u/s shows extensive dvt from ileofemoral down to calf veins nearly occlusive but asx. his ekg showed right heart strain pattern on admission. elevated troponin felt related to PE. platelets low but stable. -reviewed cta imaging with pt/. long discussion about which anticoagulant to use. -we started him on lovenox 10/11. I would prefer to send him on eliquis at d/c but I have discussed pros/cons of lovenox/coumadin. - I discussed the pros and cons of an IVC filter. my preference would be to avoid a filter. -After my discussion with the patient we agreed to get another opinion from a cargo service agent given the large clot burden, ekg change, need for further elective surgery at [place] at some point on his left forearm. We will need to decide how long to have him treated before undergoing surgical procedure. My assumption would be to wait for at least 3 months if not more. I discussed the case with Dr Laboy on 10/12 and we are in agreement with the plan If pt remains stable over next 48hrs...will get PT to ambulate..will then convert to eliquis and try for d/c either Monday or ?Monday -cont left forearm wound care as was prescribed by his doctor at [place] -His w/up here shows that he has dm2..discussed with pt/. they will decide on metformin vs continued diet and weight loss with pcp. 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
[2017-10-13] MEDS: INSULIN ASPART SUPPLEMENTAL SCALE SQ SCH ×3 (08:00→21:00)
--- NOTE | 2017-10-13 08:49 | EKG ---
Date Performed: 10/11/2017 Time Performed: 01:05:44 PTAGE: 77 years EKG: SINUS TACHYCARDIA WITH SHORT MO INTERVAL INCOMPLETE RIGHT BUNDLE BRANCH BLOCK MODERATE ST D EPRESSION ABNORMAL ECG PREVIOUS TRACING : 08/22/2011 11.47 DOCTOR: Tomas Worrell Interpretating Date/Time 10/13/2017 08:47:39
[2017-10-13] MEDS: SILVER SULFADIAZINE 1% CR 50 GM JAR TOPICAL SCH (09:00)
[2017-10-13] MEDS: ENOXAPARIN SODIUM 80 MG/0.8 ML SYRINGE SQ SCH (09:26)
--- NOTE | 2017-10-13 13:18 | PD.ONC.PN ---
Subjective Subjective Remarks Afebrile overnight Pt sitting up in chair at bedside with present Denies acute complaints Breathing easier Objective Data Date Time Temp Pulse Resp B/P (MAP) Pulse Ox O2 Delivery O2 Flow Rate FiO2 10/13/17 12:09 95 21 10/13/17 12:00 80 10/13/17 11:00 98.1 70 18 148/73 (98) 95 10/13/17 11:00 65 10/13/17 10:00 78 10/13/17 09:00 60 10/13/17 08:00 70 10/13/17 07:00 98.0 74 18 143/79 (100) 93 10/13/17 07:00 79 10/13/17 07:00 93 Room Air 10/13/17 06:02 98.2 73 18 138/73 (94) 92 10/13/17 06:00 67 10/13/17 05:00 81 10/13/17 04:00 64 10/13/17 03:00 63 10/13/17 02:00 64 10/13/17 01:00 78 10/13/17 00:00 72 10/12/17 23:34 98.0 79 18 145/72 (96) 97 10/12/17 23:00 70 10/12/17 22:00 80 10/12/17 21:00 80 10/12/17 20:00 74 10/12/17 20:00 96 Room Air 10/12/17 20:00 98.0 71 18 130/80 (97) 96 10/12/17 19:00 80 10/12/17 18:01 87 10/12/17 17:00 82 10/12/17 16:00 74 10/12/17 15:00 74 10/12/17 15:00 94 Nasal Cannula 2.00 10/12/17 15:00 97.9 79 22 127/78 (94) 94 10/12/17 14:00 79 10/13/17 10/13/17 10/13/17 07:00 15:00 23:00 Intake Total 480 ml Output Total 650 ml Balance -170 ml Result Diagram: 10/12/17 0418 10/12/17 0418 Culture Results Microbiology Date/Time Source Procedure Growth Status 10/11/17 01:00 Blood Peripheral Aerobic Blood Culture - Preliminary NO GROWTH IN 2 DAYS Resulted 10/11/17 01:00 Blood Peripheral Anaerobic Blood Culture - Preliminary NO GROWTH IN 2 DAYS Resulted 10/11/17 01:00 Blood Peripheral Aerobic Blood Culture - Preliminary NO GROWTH IN 2 DAYS Resulted 10/11/17 01:00 Blood Peripheral Anaerobic Blood Culture - Preliminary NO GROWTH IN 2 DAYS Resulted Administered Medications Medications (Trade) Dose Ordered Sig/Yamil Route PRN Reason Start Time Stop Time Status Last Admin Dose Admin Insulin Aspart (NovoLOG SUPPLEMENTAL SCALE) 1 ACHS SLIDING SCALE SQ 10/11/17 08:00 10/13/17 11:52 Enoxaparin Sodium (Lovenox Inj) 75 mg Q12H SQ 10/11/17 10:00 10/13/17 09:26 Nystatin (Mycostatin Powder) 1 applic Q8HR TOPICAL 10/11/17 09:15 10/11/17 22:46 Silver Sulfadiazine (Silvadene 1% Cream (50 Gm)) 1 applic Q12HR TOPICAL 10/11/17 09:15 10/13/17 09:00 Objective Remarks GENERAL: Elderly male, resting in bed in no acute distress SKIN: Warm and dry. HEAD: Normocephalic. Scar to R upper scalp. EYES: No injection or drainage. NECK: Supple, trachea midline. CARDIOVASCULAR: Regular rate and rhythm without murmurs. RESPIRATORY: Breath sounds equal bilaterally. No accessory muscle use. GASTROINTESTINAL: Abdomen soft, non-tender, nondistended. EXTREMITIES: No cyanosis, or edema. Bandage in place to L wrist. MUSCULOSKELETAL: Adequate muscle tone. NEUROLOGICAL: No obvious focal deficit. Awake, alert, and oriented x3. Assessment/Plan Problem List: (1) Pulmonary embolism ICD Codes: I26.99 - Other pulmonary embolism without acute cor pulmonale Status: Acute Assessment 77 y/o male admitted after being found unconscious by his ; found to have a pulmonary embolism. Plan 1. Pt is clinically improved with no evidence of R heart strain on recent echocardiogram. 2. Bridge pt from Lovenox to Eliquis. 3. Plan for Eliquis 10mg po BID for 7 days, followed by 5mg BID. 4. He can followup with his primary for management of the anticoagulant as outpatient. 5. Discussed with pt that it would be very important NOT to stop or hold this medication for 3-6 months unless emergent surgery is needed. Attending Statement The exam, history, and the medical decision-making described in the above note were completed with the assistance of the mid-level provider. I reviewed and agree with the findings presented. I attest that I had a [id number] encounter with the patient on the same day, and personally performed and documented my assessment and findings in the medical record. doing well without sob or chest pain and echo shows no right ventricular strain. Will begin eliquis 10 mg po bid for 7 days to start this evening and continue for 7 days then the dose is 5 mg po bid. Nothing further to add and will seen PRN. Situation reviewed in detail with and patient. Edwige Leiva Oct 13, 2017 13:18 Thomas Laboy MD Oct 13, 2017 13:34
[2017-10-14] VITALS (26 sets, daily range): BP systolic 126–146; BP diastolic 60–74; PULSE 53–86; RESP 17–20; TEMP 97.6–98.2; O2SAT 93–99
[2017-10-14] MEDS: APIXABAN 5 MG TABLET PO SCH ×3 (05:42→21:17)
[2017-10-14] MEDS: NYSTATIN 100,000 U/GM PWD 15 GM BTL TOPICAL SCH ×3 (05:43→22:00)
[2017-10-14] MEDS: SILVER SULFADIAZINE 1% CR 50 GM JAR TOPICAL SCH ×3 (05:43→21:00)
[2017-10-14] MEDS: INSULIN ASPART SUPPLEMENTAL SCALE SQ SCH ×4 (08:00→21:00)
--- NOTE | 2017-10-14 08:19 | HHI.PR ---
Subjective Remarks doing well. no complaints. Objective Vitals heart reg lung cta abd s/nt ext left forearm wrapped Vital Signs Date Time Temp Pulse Resp B/P (MAP) Pulse Ox O2 Delivery O2 Flow Rate FiO2 10/14/17 06:00 57 10/14/17 05:00 54 10/14/17 04:55 97.8 63 18 126/60 (82) 93 10/14/17 04:00 58 10/14/17 03:00 65 10/14/17 02:00 66 10/14/17 01:00 60 10/14/17 00:00 62 10/13/17 23:50 97.7 63 18 126/60 (82) 96 10/13/17 23:00 76 10/13/17 22:16 95 21 10/13/17 22:00 68 10/13/17 21:00 68 10/13/17 20:00 97.7 72 18 137/74 (95) 96 10/13/17 20:00 96 Room Air 10/13/17 20:00 74 10/13/17 19:00 72 10/13/17 16:00 66 10/13/17 15:00 98.1 73 18 126/65 (85) 98 10/13/17 15:00 88 10/13/17 14:00 71 10/13/17 13:00 79 10/13/17 12:09 95 21 10/13/17 12:00 80 10/13/17 11:00 98.1 70 18 148/73 (98) 95 10/13/17 11:00 65 10/13/17 10:00 78 10/13/17 09:00 60 Result Diagram: 10/12/17 0418 10/12/17 0418 A/P Problem List: (1) Pulmonary embolism ICD Codes: I26.99 - Other pulmonary embolism without acute cor pulmonale Status: Acute Plan: Pt is 77 yo male with hx squamous cell ca right scalp being followed by [facility]. Pt had extensive resection and grafting of right scalp using tissue and vessels from left forearm according to his . They took a graft from the left thigh to close the left forearm but it has been slow to heel and there is exposed tendon. The pt and say he was scheduled to return to [place] October 31 for another surgery on the left forearm to close the wound. The initial surgery was back on August 15 per . Five or six days ago he become much more sedentary after developing a rash on the scrotum. He is being treated with topical medications for what he described as "jock rash by his pcp". It has improved per pt. Yesterday he was waking out of the bathroom when he suddenly became dizzy and sob. says he fell to his knees complaining of sob and was not responding to her. Pt denies LOC. When she called paramedics he had returned to his mental baseline. In ED he was hypotensive and hypoxic. concern for pna and sepsis so pt received iv abx and ivf. CTA showed extensive bilateral pulmonary emboli. lower ext doppler u/s shows extensive dvt from ileofemoral down to calf veins nearly occlusive but asx. his ekg showed right heart strain pattern on admission. elevated troponin felt related to PE. platelets low but stable. -reviewed cta imaging with pt/. long discussion about which anticoagulant to use. -we started him on lovenox 10/11. I would prefer to send him on eliquis at d/c but I have discussed pros/cons of lovenox/coumadin. - I discussed the pros and cons of an IVC filter. my preference would be to avoid a filter. -After my discussion with the patient we agreed to get another opinion from a rodeo clown given the large clot burden, ekg change, need for further elective surgery at [place] at some point on his left forearm. We will need to decide how long to have him treated before undergoing surgical procedure. My assumption would be to wait for at least 3 months if not more. I discussed the case with Dr Laboy on 10/12 and we are in agreement with the plan converted from lovenox to eliquis 10/13. ambulate again this AM and monitor for recurrent sx's possible d/c this evening vs tomorrow morning if doing well. -cont left forearm wound care as was prescribed by his doctor at [place] -His w/up here shows that he has dm2..discussed with pt/. they will decide on metformin vs continued diet and weight loss with pcp. 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
--- NOTE | 2017-10-14 15:16 | EKG ---
Date Performed: 10/12/2017 Time Performed: 12:33:36 PTAGE: 77 years EKG: Possible atrial flutter with rapid ventricular response. Right bundle branch block Inferior /lateral T wave changes are nonspecific Abnormal ECG PREVIOUS TRACING : 10/11/2017 01.05 Compared to prior tracing no significant change DOCTOR: Low Colin Interpretating Date/Time 10/14/2017 15:15:10
[2017-10-15] VITALS (12 sets, daily range): BP systolic 127–156; BP diastolic 70–76; PULSE 62–77; RESP 16–19; TEMP 97.8–98.4; O2SAT 96–97
[2017-10-15] MEDS: NYSTATIN 100,000 U/GM PWD 15 GM BTL TOPICAL SCH (05:04)
[2017-10-15] MEDS ORDERED: APIX5TAB PO (08:06)
--- NOTE | 2017-10-15 08:07 | HHI.DCPOC ---
Discharge Care Plan Diagnosis: (1) Pulmonary embolism (2) DVT (deep venous thrombosis) Goals to Promote Your Health * To prevent worsening of your condition and complications * To maintain your health at the optimal level Directions to Meet Your Goals Take your medications as prescribed Follow your dietary instruction Follow activity as directed Keep your appointments as scheduled Take your immunizations and boosters as scheduled If your symptoms worsen call your PCP, if no PCP go to Urgent Care Center or Emergency Room Smoking is Dangerous to Your Health. Avoid second hand smoke Call the 24-hour hour crisis hotline for domestic abuse at Thomas Obrien MD Oct 15, 2017 08:07
[2017-10-15] MEDS ORDERED: WALKER WHEELS/F1 MIS (08:11)
--- NOTE | 2017-10-15 08:12 | HHI.FF ---
Face to Face Verification Diagnosis: (1) Pulmonary embolism (2) DVT (deep venous thrombosis) Physical Therapy Order: Evaluate and Treat, Improve ambulation Home Health Nursing Order: Medical education Signs/symptoms of disease process Medication education-adverse effect Nursing assessment with vital signs I have seen patient Ryan Osorio on 10/15/17. My clinical findings support the need for the requested home health care services because: Deconditioned w/ increased weakness I certify that my clinical findings support that this patient is homebound because: Unsteady gait/balance Thomas Obrien MD Oct 15, 2017 08:12
--- NOTE | 2017-10-15 08:14 | HHI.DS ---
Discharge Summary Admission Date Oct 11, 2017 at 02:49 Discharge Date: Oct 15, 2017 Admitting Diagnosis PE (1) Pulmonary embolism Diagnosis: Principal ICD Codes: I26.99 - Other pulmonary embolism without acute cor pulmonale Status: Acute (2) DVT (deep venous thrombosis) ICD Codes: I82.409 - Acute embolism and thrombosis of unspecified deep veins of unspecified lower extremity (3) Squamous cell carcinoma of scalp Diagnosis: Secondary ICD Codes: C44.42 - Squamous cell carcinoma of skin of scalp and neck Status: Chronic Brief History Pt is 77 yo male with hx squamous cell ca right scalp being followed by [facility]. Pt had extensive resection and grafting of right scalp using tissue and vessels from left forearm according to his . They took a graft from the left thigh to close the left forearm but it has been slow to heel and there is exposed tendon. The pt and say he was scheduled to return to [place] October 31 for another surgery on the left forearm to close the wound. The initial surgery was back on August 15 per . Fiver or six days ago he become much more sedentary after developing a rash on the scrotum. He is being treated with topical medications for what he described as "jock rash by his pcp". It has improved per pt. Yesterday he was waking out of the bathroom when he suddenly became dizzy and sob. says he fell to his knees complaining of sob and was not responding to her. Pt denies LOC. When she called paramedics he had returned to his mental baseline. In ED he was hypotensive and hypoxic. concern for pna and sepsis so pt received iv abx and ivf. CTA this AM shows extensive bilateral pulmonary emboli. CBC/BMP: 10/12/17 0418 10/12/17 0418 Significant Findings Laboratory Tests Test 10/12/17 12:34 Blood Gas HCO3 16 mmol/L (22-26) Blood Gas Base Excess -8.8 mmol/L (-2-2) Arterial Blood pH 7.35 (7.380-7.420) Arterial Blood Partial Pressure CO2 29 mmHg (38-42) Hospital Course (1) Pulmonary embolism Pt is 77 yo male with hx squamous cell ca right scalp being followed by [facility]. Pt had extensive resection and grafting of right scalp using tissue and vessels from left forearm according to his . They took a graft from the left thigh to close the left forearm but it has been slow to heel and there is exposed tendon. The pt and say he was scheduled to return to [place] October 31 for another surgery on the left forearm to close the wound. The initial surgery was back on August 15 per . Five or six days ago he become much more sedentary after developing a rash on the scrotum. He is being treated with topical medications for what he described as "jock rash by his pcp". It has improved per pt. Yesterday he was waking out of the bathroom when he suddenly became dizzy and sob. says he fell to his knees complaining of sob and was not responding to her. Pt denies LOC. When she called paramedics he had returned to his mental baseline. In ED he was hypotensive and hypoxic. concern for pna and sepsis so pt received iv abx and ivf. CTA showed extensive bilateral pulmonary emboli. lower ext doppler u/s shows extensive dvt from ileofemoral down to calf veins nearly occlusive but asx. his ekg showed right heart strain pattern on admission. elevated troponin felt related to PE. platelets low but stable. echo no strain patter. -reviewed cta imaging with pt/. long discussion about which anticoagulant to use. -we started him on lovenox 10/11. I would prefer to send him on eliquis at d/c but I have discussed pros/cons of lovenox/coumadin. - I discussed the pros and cons of an IVC filter. my preference would be to avoid a filter. -After my discussion with the patient we agreed to get another opinion from a rougher helper given the large clot burden, ekg change, need for further elective surgery at [place] at some point on his left forearm. My assumption would be to wait for at least 3 months if not more. I discussed the case with Dr Laboy on 10/12 and we are in agreement with the plan converted from lovenox to eliquis 10/13. ambulated all yesterday and no adverse events. -cont left forearm wound care as was prescribed by his doctor at [place] -His w/up here shows that he has dm2..discussed with pt/. they will decide on metformin vs continued diet and weight loss with pcp. Pt Condition on Discharge: Stable Discharge Disposition: Disch w/ Home Health Serv Discharge Instructions DIET: Follow Instructions for: Diabetic Diet Activities you can perform: See Additionl Instruction Other Activity Instructions: avoid overexertional activity until reevaluation by your pcp Follow up Referrals: PCP Follow-up - 1 Week with [facility] New Medications: Apixaban (Eliquis) 5 Mg Tab 5 MG PO DIRECTED for Blood Clot Prevention for 30 Days, #60 TAB 6 Refills 10mg po bid x 5 days then 5mg po bid Walker with Front Wheels (Walker with Front Wheels) 1 Mis Mis EA .ROUTE DIRECTED, #1 0 Refills Discontinued Medications: Miscellaneous (No Current Meds) [facility] Thomas Obrien MD Oct 15, 2017 08:14
[2017-10-15] MEDS: SILVER SULFADIAZINE 1% CR 50 GM JAR TOPICAL SCH (09:00)
[2017-10-15] MEDS: APIXABAN 5 MG TABLET PO SCH (09:38)
[2017-10-20] MEDS ORDERED: APIXABAN 5 MG TABLET PO SCH (21:00)
== END 2017-10-15 11:43 | disposition home health service (06) | DRG 176 ==
LOC: NEPE 00:55 → NEDA 02:49 → HCPC 05:50
PROVIDERS: ADMIT Hospitalist; ATTEND Hospitalist
DX: I26.99 Other pulmonary embolism without acute cor pulmonale (principal); D69.6 Thrombocytopenia, unspecified; I82.412 Acute embolism and thrombosis of left femoral vein; E11.9 Type 2 diabetes mellitus without complications; Z85.828 Personal history of other malignant neoplasm of skin; Z92.3 Personal history of irradiation; T81.89XA Other complications of procedures, not elsewhere classified, initial encounter; R21 Rash and other nonspecific skin eruption; G47.30 Sleep apnea, unspecified; Z87.891 Personal history of nicotine dependence
CPT/HCPCS: 36600; 51702; 70450; 71010; 71275; 80048; 80053; 81001; 82550; 82552; 82805; 82948; 83036; 83605; 83690; 83735; 83880; 84484; 85025; 85610; 85730; 86140; 87040; 93005; 93306; 93970; 96365; 96368; J0171; J0456; J0461; J0696; J1650; J1815; J2543; J3370; J7030; J7050; Q9967